=== PATIENT | male | born 1940 | race Caucasian/White ===

== ENCOUNTER → 2017-08-04 17:39 | Outpatient (CLI) | payer MEDICARE, SELFPAY ==
--- NOTE | 2017-08-04 | CYSPIN_PTH ---
PATIENT: PRABHJOT ARCOS LOC: [facility] U#:[id number] AGE/SX: 84/M ROOM: RE08/04/[address]: Dr. Dre Leroy MD : 1940 BED: DIS: SPEC #: [id number] RECD: 08/04/17 17:40 STATUS: AVA MARSHALL #: [id number] KRISTOFER: 08/04/17 00:[address]: Dre Leroy DEPT: CYTOLOGY RECD BY: Kodi Styles ENTERED: 08/05/17 11:21 SP TYPE: CYSPIN FL OTHR DR: Dr. Prabhjot Montiel MD Tissues: Urine Procedures: Pap Stain (control) Special Stain Group II Cytospin Fluid HEADER OPERATION: Not noted PRE-OP DIAGNOSIS: C67.9 TISSUE SUBMITTED: Urine for cytology DIAGNOSIS CYTOLOGY Urine for cytology (cytospin): Rare atypical urothelial cells present. AM:gretel 08/06/17 COMMENT Reference is made to the patient?s urinary bladder, TUR from 2010 ([id number]) in which papillary urothelial carcinoma, low-grade, was identified. CYTOLOGY STUDY Slides are reviewed. CYTOLOGY GROSS Received is 80 ml of clear yellow fluid labeled with the patient's name and and designated per the requisition as urine. Submitted for cytology preparation. / 08/05/17 TC:? CPT: 46244
[2017-08-04 17:42] LABS: Cytology, Body Fluid / CSF SEE PATHOLOGY REPORT
== END ==
PROVIDERS: PCP Family Medicine; Visit Provider Urology
DX: C67.9 Malignant neoplasm of bladder, unspecified (principal)
CPT/HCPCS: 88108; 88313

== ENCOUNTER 2017-09-02 05:56 | Day surgery (SDC) | payer MEDICARE, SELFPAY ==
[2017-09-02 06:53] VITALS: BP 131/56; PULSE 58; TEMP 36.1; O2SAT 97; BMI 21.1
--- NOTE | 2017-09-02 08:37 | PCM.OP.BLANK ---
Operative Report Date of Procedure: 09/02/17 Operative procedure Patient Awais Khan Procedure removal of PE tubes and paper patch tympanoplasty bilateral Preoperative diagnosis large indwelling PE tubes with bilateral conductive and sensorineural hearing loss Postoperative diagnosis same Procedure the patient was placed supine on the operating room table. After satisfactory general anesthesia had been obtained. The patient was draped in the usual sterile manner. The left ear was examined with the operating microscope. A large parasol tube was noted in the inferior quadrant. This tube was removed with cup forceps. The edges of the perforation were debrided with a Jones needle. Paper patch measured to size soaked in ofloxacin solution was placed over the perforation. The right ear was examined with the operating microscope. A large parasol tube was noted in the inferior quadrant. This tube was removed with a forceps.. The edges of the perforation were debrided with a Jones needle. Fresh bleeding edges were obtained. A paper patch measured to size and soaked in Floxin solution was placed over the perforation. The procedure was considered terminated the patient extubated and returned to the recovery room in satisfactory condition. Doug Plummer MD
[2017-09-02 08:56] VITALS: BP 111/58; BP 131/56; PULSE 63; RESP 18; TEMP 36.1; O2SAT 98
[2017-09-02 09:00] VITALS: BP 131/56; BP 138/60; PULSE 58; RESP 18; O2SAT 100
[2017-09-02 09:03] VITALS: BP 131/56; BP 138/60; PULSE 57; RESP 18; TEMP 36.1; O2SAT 98
[2017-09-02 09:41] VITALS: BP 131/56
== END 2017-09-02 09:42 | disposition home or self-care (01) ==
LOC: SDC 05:57 → AC 06:04
PROVIDERS: Family Provider Family Medicine; PCP Family Medicine; Visit Provider Otolaryngology Otolaryngology/Facial Plastic Surgery
PROC: (CPT 69610; principal; 2017-09-02 07:45)
DX: H90.0 Conductive hearing loss, bilateral (principal); H90.3 Sensorineural hearing loss, bilateral; J30.1 Allergic rhinitis due to pollen; J30.81 Allergic rhinitis due to animal (cat) (dog) hair and dander; R00.1 Bradycardia, unspecified; F17.200 Nicotine dependence, unspecified, uncomplicated; Z79.899 Other long term (current) drug therapy; Z79.52 Long term (current) use of systemic steroids; Z85.51 Personal history of malignant neoplasm of bladder
CPT/HCPCS: 69610; J7120

== ENCOUNTER → 2017-09-04 13:04 | Outpatient (CLI) | payer MEDICARE, SELFPAY ==
--- NOTE | 2017-09-04 13:10 | MRI_ITS ---
STUDY: MRI CERVICAL SPINE WITHOUT CONTRAST REASON FOR EXAM: Male, 77 years old. Bilat hand numbness. TECHNIQUE: Standardized fat and water weighted pulse sequences were obtained in the sagittal and axial planes. COMPARISON: None FINDINGS: Normal foramen magnum and brainstem-cervical cord junction. Normal craniovertebral junction. Normal anterior atlantoaxial articulation. Normal odontoid process. Normal cervical lordosis. C2-3: There is minimal disc osteophyte complex without significant central canal or foraminal stenosis. C3-4: There is moderate disc space narrowing and encasement loss. There is a moderate disc osteophyte complex and dorsal ligamentous buckling with severe central canal stenosis. There is uncovertebral and facet arthropathy with mild right and severe left foraminal stenosis. C4-5: There is severe disc space narrowing and endplate spondylosis. There is moderate disc osteophyte complex with severe central canal stenosis. There is uncovertebral and facet arthropathy with severe bilateral foraminal stenosis. C5-6: There is anterior fusion. There is no central canal stenosis. There is uncovertebral arthropathy with mild bilateral foraminal stenosis. C6-7: There is anterior fusion. There is no significant central canal or foraminal stenosis. C7-T1: There is anterior fusion. There is no significant central canal stenosis. There is uncovertebral and facet arthropathy with severe bilateral foraminal stenosis. T1/T2: There is anterior fusion. There is no significant central canal stenosis.There is uncovertebral arthropathy with severe bilateral foraminal stenosis. Normal visualized soft tissue structures. MRI/Spine Cervical (Routine) IMPRESSION: C3/C4: Severe central canal stenosis. Severe left foraminal stenosis. C4/C5: Severe central canal stenosis. Severe bilateral foraminal stenosis. C5-T2 anterior fusion. T1/T2: Severe bilateral sinusitis. Electronically Signed: Milana Park MD at 11:40 EDT Tel , Service support ,
--- NOTE | 2017-09-04 13:20 | RAD_ITS ---
STUDY: X-RAY - CERVICAL SPINE REASON FOR EXAM: Male, 77 years old. Weakness of both hands TECHNIQUE: 8 view(s) of the cervical spine were obtained. COMPARISON: None FINDINGS: Anterior fusions of C5, C6, C7, T1, and T2. Degenerative disc disease at C3-4 and C4-5. Diffuse facet disease. Alignment is normal. Prevertebral soft tissues are normal. Osseous foraminal stenosis on the right at C4-5 and on the left at C3-4 and C4-5. Dens is normal. Carotid calcifications on the left. No evidence of instability between flexion and extension. RAD/Cerv Spine Obl/Flex/Ext Comp IMPRESSION: Normal alignment. No instability is seen. Degenerative disc disease at C3-4 and C4-5. Electronically Signed: Carl Hennessy MD at 1:06 EDT Tel , Service support ,
== END ==
PROVIDERS: Family Provider Family Medicine; PCP Family Medicine; Visit Provider Neurological Surgery
DX: R29.898 Other symptoms and signs involving the musculoskeletal system (principal)
CPT/HCPCS: 72052; 72141

== ENCOUNTER → 2017-11-24 10:10 | Outpatient (CLI) | payer MEDICARE, SELFPAY ==
--- NOTE | 2017-11-24 10:18 | MRI_ITS ---
STUDY: MRI BRAIN WITHOUT CONTRAST REASON FOR EXAM: Male, 77 years old. STROKE; follow up to prev; hearing loss, numbness in hands. TECHNIQUE: Standardized multiplanar fat and water weighted pulse sequences were obtained. COMPARISON: January 27, 2017 FINDINGS: There is mild cerebral atrophy with widening of the extra-axial spaces and ventricular dilatation. There are multiple white matter hyperintensities, distributed throughout the deep white matter tracts of the cerebral hemispheres, consistent with moderate chronic white matter ischemic changes. Normal bilateral basal ganglia. Normal thalami. There is no extra-axial fluid accumulation. Normal flow voids within the major intracranial circulation suggesting patency by spin echo criteria. Normal sella turcica, pituitary gland, infundibular stalk, optic chiasm and hypothalamus. Normal tectal plate and pineal gland. Normal midbrain, fernie and medulla. Normal cerebellum. Normal basal cisterns. There is increased bilateral mastoid fluid. MRI/Brain without Contrast IMPRESSION: No acute intracranial abnormality. Increased bilateral mastoid disease. Electronically Signed: Milana Park MD at 9:15 EDT Tel , Service support ,
== END ==
PROVIDERS: Family Provider Family Medicine; PCP Family Medicine; Visit Provider Family Medicine
DX: Z86.73 Personal history of transient ischemic attack (TIA), and cerebral infarction without residual deficits (principal)
CPT/HCPCS: 70551

== ENCOUNTER → 2020-12-18 16:55 | Outpatient (CLI) | payer MEDICARE, SELFPAY ==
--- NOTE | 2020-12-18 | CYSPIN_PTH ---
PATIENT: PRABHJOT ARCOS LOC: [facility] U#:[id number] AGE/SX: 84/M ROOM: RE12/18/[address]: Dr. Dre Leroy MD : 1940 BED: DIS: SPEC #: [id number] RECD: 12/19/20 07:49 STATUS: AVA OLIVARES #: [id number] KRISTOFER: 12/18/20 00:[address]: Dre Leroy DEPT: CYTOLOGY RECD BY: Atul Herring ENTERED: 12/19/20 07:49 SP TYPE: CYSPIN FL OTHR DR: Dr. Prabhjot Montiel MD Tissues: Urine Procedures: Pap Stain (control) Special Stain Group II Cytospin Fluid HEADER OPERATION: Not noted PRE-OP DIAGNOSIS: Bladder cancer TISSUE SUBMITTED: Urine for cytology DIAGNOSIS CYTOLOGY Urine for cytology (cytospin): Rare atypical degenerating urothelial cells present. AM:gretel 12/20/2020 CYTOLOGY STUDY Slides are reviewed. CYTOLOGY GROSS Received is 40 ml of gold cloudy fluid labeled with the patient's name and and designated per the requisition as urine. Submitted for cytology preparation. / gretel 12/18/20 TC:? CPT: 15986
[2020-12-18 17:44] LABS: Cytology, Body Fluid / CSF SEE PATHOLOGY REPORT
== END ==
PROVIDERS: PCP Family Medicine; Referring Provider Urology; Visit Provider Urology
DX: C67.9 Malignant neoplasm of bladder, unspecified (principal)
CPT/HCPCS: 88108; 88313

== ENCOUNTER → 2021-12-25 | Outpatient (CLI) | payer MEDICARE, SELFPAY ==
--- NOTE | 2021-12-25 14:40 | CYSPIN_PTH ---
PATIENT: PRABHJOT ARCOS LOC: [facility] U#:[id number] AGE/SX: 81/M ROOM: RE12/25/[address]: Dr. Dre Leroy MD : 1940 BED: DIS: 12/25/2021 SPEC #: [id number] RECD: 12/26/21 09:05 STATUS: AVA OLIVARES #: [id number] KRISTOFER: 12/25/21 14:[address]: Dre Leroy DEPT: CYTOLOGY RECD BY: Yesenia Cortez ENTERED: 12/26/21 09:05 SP TYPE: CYSPIN FL OTHR DR: Dr. Prabhjot Montiel MD Tissues: Urine Procedures: Pap Stain (control) Special Stain Group II Cytospin Fluid HEADER OPERATION: Not noted PRE-OP DIAGNOSIS: History of malignant neoplasm of bladder TISSUE SUBMITTED: Urine for cytology DIAGNOSIS CYTOLOGY Urine for cytology (cytospin): A few clusters of mildly atypical urothelial cells noted. See comment. SJ:gretel 12/26/2021 COMMENT Clinical correlation and appropriate follow up are necessary. Please make reference to previous specimen ([id number]) urinary bladder tumor, TUR and deeper urinary bladder tumor, TUR with diagnosis of ?urothelial carcinoma.? CYTOLOGY STUDY Slides are reviewed. CYTOLOGY GROSS Received is 50 ml of gold cloudy fluid labeled with the patient's name and and designated per the requisition as urine. Submitted for cytology preparation. / gretel 12/26/2021 TC:5 CPT: 58534
[2021-12-25 17:52] LABS: Cytology, Body Fluid / CSF SEE PATHOLOGY REPORT
== END | disposition home or self-care (01) ==
LOC: LABSPEC 16:34
PROVIDERS: PCP Family Medicine; Visit Provider Urology
DX: Z85.51 Personal history of malignant neoplasm of bladder (principal)
CPT/HCPCS: 88108; 88313

== ENCOUNTER → 2022-02-07 | Outpatient (CLI) | payer MEDICARE, SELFPAY ==
--- NOTE | 2022-02-07 07:15 | MRI_ITS ---
HISTORY: WHITE, SUBJECTIVE VISUAL DISTURBANCE. TECHNIQUE: Multiplanar and multisequence MR images of the brain were obtained before and after the intravenous administration of 11 mL Clariscan. 339 images. COMPARISON: 11/24/2017, 01/27/2017. FINDINGS: BRAIN PARENCHYMA: Moderate chronic small vessel ischemic gliosis. No abnormal focus of restricted diffusion. No acute intracranial hemorrhage identified. CSF SPACES: Mild generalized volume loss. No significant midline shift or other mass effect.No extra-axial fluid collection. No mass effect on the optic chiasm. VASCULAR SYSTEM: Major intracranial flow voids are maintained. PARANASAL SINUSES AND MASTOID AIR CELLS: No significant air fluid levels. ORBITS: Symmetric contents. Bilateral lens resections. MRI/Brain W/WO Contrast IMPRESSION: No evidence of enhancing intracranial mass, acute infarct, or significant mass effect. Chronic involutional and white matter changes. Electronically Signed: Carolina Cam MD at 11:20 EDT ,
[2022-02-07 07:46] LABS: CREATININE FINGERSTICK < 0.9 mg/dL (0.70-1.30); EGFR FINGERSTICK > 60.0000 mL/min (>60)
== END | disposition home or self-care (01) ==
PROVIDERS: PCP Family Medicine; Referring Provider Ophthalmology; Visit Provider Ophthalmology
DX: R51.9 Headache, unspecified (principal); H53.10 Unspecified subjective visual disturbances
CPT/HCPCS: 70553; A9575

== ENCOUNTER → 2022-08-27 | Outpatient (CLI) | payer MEDICARE, SELFPAY ==
--- NOTE | 2022-08-27 14:04 | PFTCOMP ---
COMPLETE PULMONARY FUNCTION TEST INTERPRETATION Brief HPI: Patient is an 82-year-old male, currently under the care of Dr. Segura, who presents to [facility] for complete pulmonary function tests secondary to diagnosis of COPD. Respiratory therapist reports good effort and reproducible results. Interpretation: Forced expiration spirometry shows mild large airways obstructive ventilatory defect with an FEV1 of 75% predicted. There is a significant bronchodilator response in FVC by strict ATS criteria. Spirograms are of good quality and plateau slowly, indicating slowly emptying areas of the lungs. The respiratory flow volume loop shows decreased expiratory flow rates at all lung volumes consistent with airway obstruction. Lung volumes by body plethysmography show a normal total lung capacity at 5.63 L, 100% predicted. All other lung volumes are within normal limits. Diffusion capacity by carbon monoxide is normal at 119% predicted. The airway resistance is elevated. No previous pulmonary function tests were available for review. Impression: Partially reversible mild large airways obstructive ventilatory defect with preserved lung volumes and diffusion capacity
== END | disposition home or self-care (01) ==
LOC: PSN 12:45
PROVIDERS: PCP Family Medicine; Referring Provider Internal Medicine; Visit Provider Internal Medicine
DX: J44.9 Chronic obstructive pulmonary disease, unspecified (principal); F17.200 Nicotine dependence, unspecified, uncomplicated
CPT/HCPCS: 94060; 94726; 94729

== ENCOUNTER → 2022-10-02 | Outpatient (CLI) | payer MEDICARE, SELFPAY ==
--- NOTE | 2022-10-02 14:00 | RAD_ITS ---
INDICATION: CT denied. Provider request CXR EXAMINATION/TECHNIQUE: X-RAY - XR Chest 2 Views COMPARISON: None. FINDINGS: The lungs are clear. Hyperinflated. Tortuous and calcified thoracic aorta. The heart is not enlarged. No pleural effusion or pneumothorax. Degenerative changes of the thoracic spine. Chronic compression deformities of T12, L1 and L2 vertebral bodies. Old rib fractures on the left. RAD/Chest PA and Lateral IMPRESSION: No acute radiographic abnormalities. COPD. Chronic compression deformities of T12, L1 and L2 vertebral bodies. Old rib fractures on the left. Electronically Signed: Won Graff MD at 17:52 EDT ,
== END | disposition home or self-care (01) ==
LOC: RAD 13:59
PROVIDERS: PCP Family Medicine; Referring Provider Internal Medicine; Visit Provider Internal Medicine
DX: J44.9 Chronic obstructive pulmonary disease, unspecified (principal)
CPT/HCPCS: 71046

== ENCOUNTER → 2022-12-26 | Outpatient (CLI) | payer MEDICARE, SELFPAY ==
--- NOTE | 2022-12-26 | CYSPIN_PTH ---
PATIENT: PRABHJOT ARCOS LOC: [facility] U#:[id number] AGE/SX: 82/M ROOM: RE12/26/[address]: Dr. Dre Leroy MD : 1940 BED: DIS: 12/26/2022 SPEC #: [id number] RECD: 12/26/22 12:42 STATUS: AVA MARSHALL #: [id number] KRISTOFER: 12/26/22 00:[address]: Dre Leroy DEPT: CYTOLOGY RECD BY: Atul Herring ENTERED: 12/26/22 12:42 SP TYPE: CYSPIN FL OTHR DR: Dr. Prabhjot Montiel MD Tissues: Urine Procedures: Pap Stain (control) Special Stain Group II Cytospin Fluid HEADER OPERATION: Not noted PRE-OP DIAGNOSIS: Screening TISSUE SUBMITTED: Urine for cytology DIAGNOSIS CYTOLOGY Urine for cytology (cytospin): Negative for high-grade urothelial carcinoma (ALGU), Grace System Category II. See comment. AM:gretel 12/27/2022 COMMENT The Grace System for urine cytology diagnostic categorization was used in the evaluation of this case. The specimen is markedly hypocellular. Clinical correlation is suggested. CYTOLOGY STUDY Slides are reviewed. CYTOLOGY GROSS Received is 60 ml of light yellow fluid labeled with the patient's name and and designated per the requisition as urine. Submitted for cytology preparation. / gretel 12/26/2022 TC:5 CPT: 08874
[2022-12-26 12:05] LABS: Cytology, Body Fluid / CSF SEE PATHOLOGY REPORT
== END | disposition home or self-care (01) ==
LOC: LABSPEC 11:50
PROVIDERS: PCP Family Medicine; Referring Provider Urology; Visit Provider Urology
DX: Z12.6 Encounter for screening for malignant neoplasm of bladder (principal)
CPT/HCPCS: 88108; 88313

== ENCOUNTER → 2023-12-30 | Outpatient (CLI) | payer MEDICARE, SELFPAY ==
--- NOTE | 2023-12-30 | CYSPIN_PTH ---
PATIENT: PRABHJOT ARCOS LOC: [facility] U#:[id number] AGE/SX: 83/M ROOM: RE12/30/[address]: Dr. Dre Leroy MD : 1940 BED: DIS: 12/30/2023 SPEC #: [id number] RECD: 12/31/23 08:07 STATUS: AVA OLIVARES #: [id number] KRISOTFER: 12/30/23 00:[address]: Dre Leroy DEPT: CYTOLOGY RECD BY: Yesenia Cortez ENTERED: 12/31/23 08:08 SP TYPE: CYSPIN FL OTHR DR: Dr. Prabhjot Montiel MD Tissues: Urine Procedures: Pap Stain (control) Special Stain Group II Cytospin Fluid HEADER OPERATION: Not noted PRE-OP DIAGNOSIS: Malignant neoplasm of overlapping sites of bladder TISSUE SUBMITTED: Urine for cytology DIAGNOSIS CYTOLOGY Urine for cytology (cytospin): Negative for high grade urothelial carcinoma (Grace Category System II). See comment. AM/ 12/31/2023 COMMENT The Grace System for urine cytology diagnostic categorization was used in the evaluation of this case. Rare epithelial cells are present. Clinical correlation is suggested. CYTOLOGY STUDY Slides are reviewed. CYTOLOGY GROSS Received is 100 ml of yellow-cloudy fluid labeled with the patient's name and and designated per the requisition as urine. Submitted for cytology preparation. Mr 12/31/2023 TC:5 CPT: 49290
[2023-12-30 15:56] LABS: Cytology, Body Fluid / CSF SEE PATHOLOGY REPORT
== END | disposition home or self-care (01) ==
LOC: LABSPEC 15:35
PROVIDERS: PCP Family Medicine; Referring Provider Urology; Visit Provider Urology
DX: C67.8 Malignant neoplasm of overlapping sites of bladder (principal)
CPT/HCPCS: 88108; 88313

== ENCOUNTER → 2024-02-11 | Outpatient (CLI) | payer MEDICARE, SELFPAY ==
--- NOTE | 2024-02-11 16:00 | MRI_ITS ---
STUDY: MRI BRAIN WITH AND WITHOUT CONTRAST REASON FOR EXAM: Male, 83 years old. BILATERAL EYES, BLURRING DISTORTION, PERIPHERAL VISION, HEADACHES [id number] Homonymous visual field defect TECHNIQUE: Standardized multiplanar fat and water weighted pulse sequences were obtained. IV 12CC CLARISCAN was administered for the contrast portion of the examination. Mild motion artifact is present on several sequences. COMPARISON: MRI of the brain dated February 07, 2022 FINDINGS: There is mild cerebral atrophy with widening of the extra-axial spaces and ventricular dilatation. There are multiple white matter hyperintensities, distributed throughout the deep white matter tracts of the cerebral hemispheres, consistent with moderate chronic white matter ischemic changes. Normal bilateral frontal poles, and orbital frontal and gyrus recti of the frontal lobes. Normal bilateral temporal tips of the temporal lobes. There are no white matter shear injuries (diffuse axonal injuries). There are no parenchymal hemorrhages or hematomas. There are no findings to suggest prior closed head parenchymal injury of the brain. There is no evidence for recent intracranial ischemia or other cause of cytotoxic edema on diffusion weighted imaging (DWI). There are no demyelinating plagues of the supratentorial brain, brainstem or cerebellum. There are no findings suspicious for multiple sclerosis (MS). No hydrocephalus is present. There are no primary infiltrating lesions or vasogenic edema or abnormally enhancing lesions of the brain parenchyma. No abnormal thickening or enhancement of meninges or dura is seen. No skull lesions are present. Normal bilateral basal ganglia. Normal thalami. There is no extra-axial fluid accumulation. Normal flow voids within the major intracranial circulation suggesting patency by spin echo criteria. Normal venous enhancement. There is no enhancing intra-axial or extra-axial abnormality. Normal sella turcica, pituitary gland, infundibular stalk, optic chiasm and hypothalamus. Normal tectal plate and pineal gland. There are chronic white matter ischemic changes of the fernie. The midbrain and medulla are otherwise normal. Normal cerebellum. Normal basal cisterns. Normal bilateral temporal bones. Normal bilateral internal auditory canals. No demonstrated orbital abnormality, within the constraints of a routine brain study. Normal visualized paranasal sinuses. Normal calvarium and skull base. Normal visualized soft tissue structures. Normal visualized upper cervical spine. MRI/Brain W/WO Contrast IMPRESSION: 1. Involutional and chronic ischemic changes of the brain, as described above. 2. No acute infarct or intracranial hemorrhage. 3. No hydrocephalus is present. There are no primary infiltrating lesions or vasogenic edema or abnormally enhancing lesions of the brain parenchyma. No abnormal thickening or enhancement of meninges or dura is seen. No skull lesions are present. Electronically Signed: Stuart Ramirez MD at 13:00 EDT ,
[2024-02-11 16:29] LABS: CREATININE FINGERSTICK < 1.0 mg/dL (0.70-1.30); EGFR FINGERSTICK > 60.0000 mL/min (>60)
== END | disposition home or self-care (01) ==
LOC: MRI 15:34
PROVIDERS: PCP Family Medicine; Referring Provider Ophthalmology; Visit Provider Ophthalmology
DX: H53.461 Homonymous bilateral field defects, right side (principal); H53.462 Homonymous bilateral field defects, left side
CPT/HCPCS: 70553; A9575

== ENCOUNTER → 2024-12-30 | Outpatient (CLI) | payer MEDICARE, SELFPAY | END | disposition home or self-care (01) | PROVIDERS: PCP Family Medicine; Referring Provider Urology; Visit Provider Urology | DX: C67.2 Malignant neoplasm of lateral wall of bladder (principal) ==